=== PATIENT | male | born 1965 | race Caucasian/White ===

== ENCOUNTER 2017-11-30 22:12 | Emergency (ER) | payer MEDICAID, OTHER ==
[~2017-11-30] VITALS: Ht 180.3 cm; Wt 102.1 kg
[2017-11-30 22:22] VITALS: BP 100/75
--- NOTE | 2017-11-30 22:29 | NUR ---
PT AMBULATED TO ROOM 5 WITH VSS.
--- NOTE | 2017-11-30 22:30 | NUR ---
PT PRESENTED ER WITH C/O PAIN TO THE CHEST X 3 HRS AGO. PT STATED HE FEELS TIGHTNESS, AND SHARP PAIN TO THE CHEST AND SOB. 02 SATURATION IS 98% ON RA. PT STATED HE IS GOING THROUGH SOME STRESSFULL TIMES. EKG IS SINUS BRADYCARDIA. KNA AND NO PREVIOUS MEDICAL HX; SKIN IS PINK/WARM/DRY; AAOX4 WITH EVEN AND STEADY GAIT; PATIENT STATES PAIN OF 6/10 AT THIS TIME; VSS; PATIENT POSITIONED FOR COMFORT; HOB ELEVATED; BEDRAILS UP X2; BED DOWN. ER MD MADE AWARE OF PT STATUS.
[2017-11-30] MEDS ORDERED: NITROGLYCERIN 0.4 MG TAB SL ONE (23:10)
[2017-11-30] MEDS ORDERED: ASPIRIN 325 MG TAB PO ONE (23:10)
--- NOTE | 2017-12-01 00:05 | NUR ---
PT RESTING IN BED. VITALS STABLE.
[2017-12-01 00:10] LABS: BASOPHILS % (AUTO) 0.5 % (0.0-2.0); EOSINOPHILS # (AUTO) 0.1 K/uL (0-0.4); HEMATOCRIT 43.2 % (36-52); HEMOGLOBIN 14.1 g/dL (12.0-18.0); LYMPHOCYTES # (AUTO) 2.1 K/uL (2.0-11.5); MEAN CORPUSCULAR HEMOGLOBIN 31 pg (27-31); MEAN CORPUSCULAR HGB CONC 33 g/dL (33-37); MEAN CORPUSCULAR VOLUME 93.7 fL (80-94); MONOCYTES # (AUTO) 0.5 K/uL (0.8-1.0); MONOCYTES % (AUTO) 9.6 % (1.7-9.3); NEUTROPHILS # (AUTO) 2.7 K/uL (1.8-7.7); NEUTROPHILS % (AUTO) 49.9 % (42.2-75.2); PLATELET COUNT (AUTO) 211 K/uL (140-450); WHITE BLOOD COUNT (AUTO) 5.4 K/uL (4.8-10.8)
[2017-12-01 00:23] LABS: ANION GAP 5.8 (8-16); CARBON DIOXIDE 32.2 mmol/L (21-32); CREATININE 0.9 mg/dL (0.7-1.3)
[2017-12-01 00:28] LABS: ALBUMIN 3.7 g/dL (3.4-5.0); TOTAL BILIRUBIN 0.2 mg/dL (0.0-1.0)
--- NOTE | 2017-12-01 00:53 | NUR ---
PT SLEEPING IN BED, VITALS STABLE.
[2017-12-01 01:47] VITALS: BP 104/74
--- NOTE | 2017-12-01 01:47 | NUR ---
Patient discharged with v/s stable. Written and verbal after care instructions given and explained. Patient alert, oriented and verbalized understanding of instructions. Ambulatory with steady gait. All questions addressed prior to discharge. ID band removed. Patient advised to follow up with PMD. Rx of ATIVAN was given. Patient educated on indication of medication including possible reaction and side effects. Opportunity to ask questions provided and answered.
== END 2017-12-01 01:47 | disposition home or self-care (01) ==
LOC: MED 22:12
DX: F41.9 Anxiety disorder, unspecified (principal)
CPT/HCPCS: 36415; 71045; 80053; 84484; 85025; 93005; 99285; Q0092

== ENCOUNTER 2020-07-19 05:53 | Day surgery (SDC) | payer OTHER, SELFPAY ==
[~2020-07-19] VITALS: Ht 180.3 cm; Wt 102.1 kg
[2020-07-19] MEDS ORDERED: fentaNYL citrate 0.05 MG/ML VIAL ONE (07:31)
[2020-07-19] MEDS ORDERED: MIDAZOLAM 5 MG/5 ML VIAL ONE (07:33)
[2020-07-19] MEDS ORDERED: LIDOCAINE VISCOUS 2% 20 ML UDC ONE (07:53)
[2020-07-19] MEDS ORDERED: MIDAZOLAM 2 MG/2 ML VIAL IVP ONE (10:00)
== END 2020-07-19 09:15 | disposition home or self-care (01) ==
LOC: MDS 05:53 → MMU 06:07 → MDS 09:15
PROVIDERS: ATTEND Internal Medicine Gastroenterology
DX: K21.00 Gastro-esophageal reflux disease with esophagitis, without bleeding (principal); K29.70 Gastritis, unspecified, without bleeding; R06.02 Shortness of breath; R93.5 Abnormal findings on diagnostic imaging of other abdominal regions, including retroperitoneum; Z79.899 Other long term (current) drug therapy; Z90.49 Acquired absence of other specified parts of digestive tract; Z20.828 Contact with and (suspected) exposure to other viral communicable diseases
CPT/HCPCS: 36415; 43239; 86677; J2250; U0003; J3010

== ENCOUNTER 2020-11-06 11:38 | Emergency (ER) | payer OTHER, SELFPAY ==
[~2020-11-06] VITALS: Ht 180.3 cm; Wt 105.3 kg
[2020-11-06 11:44] VITALS: BP 128/78
--- NOTE | 2020-11-06 12:17 | NUR ---
JERMAINE WILSON EVALUATING PT IN TRIAGE
[2020-11-06] MEDS ORDERED: KETOROLAC 30 MG/ML VIAL IM ONE (12:20)
--- NOTE | 2020-11-06 12:40 | NUR ---
PT BACK FROM RAD AND TAKEN TO BED 9
--- NOTE | 2020-11-06 12:46 | NUR ---
54/M presents to ED with c/o left hand pain. Patient states he "slipped and fell" this morning at home, stating he landed on his left hand to "catch himself." Patient states he now has 7/10 constant left hand pain radiating up to his left shoulder. Patient denies taking anything for pain prior to arrival to ED. Pulses and sensation equal bilaterally, ROM limited in left arm due to pain, no redness or swelling noted to site.
[2020-11-06] MEDS ORDERED: NAPR-54 PO (13:12)
[2020-11-06] MEDS ORDERED: LIDO1ADH47 TP (13:12)
[2020-11-06] MEDS ORDERED: IBUPROFEN 800 MG TAB ONE (13:34)
[2020-11-06] MEDS ORDERED: IBUPROFEN 800 MG TAB PO ONE (13:35)
[2020-11-06 13:38] VITALS: BP 128/78
--- NOTE | 2020-11-06 13:39 | NUR ---
Patient discharged with v/s stable. Written and verbal after care instructions given and explained. Patient alert, oriented and verbalized understanding of instructions. Ambulatory with steady gait. All questions addressed prior to discharge. ID band removed. Patient advised to follow up with PMD. Rx of Lidocaine patch and Naprosyn given. Patient educated on indication of medication including possible reaction and side effects. Opportunity to ask questions provided and answered.
[2020-11-06] MEDS ORDERED: NAPROXEN 500 MG TAB PO SCH (21:00)
== END 2020-11-06 13:37 | disposition home or self-care (01) ==
LOC: MED 11:38
DX: S40.012A Contusion of left shoulder, initial encounter (principal); S60.012A Contusion of left thumb without damage to nail, initial encounter; Z79.899 Other long term (current) drug therapy; Z90.49 Acquired absence of other specified parts of digestive tract; Z98.890 Other specified postprocedural states; W06.XXXA Fall from bed, initial encounter; Y93.89 Activity, other specified; Y92.89 Other specified places as the place of occurrence of the external cause; Y99.8 Other external cause status
CPT/HCPCS: 73030; 73130; 96372; 99284; J1885

== ENCOUNTER 2021-04-25 20:16 | Emergency (ER) | payer OTHER ==
[~2021-04-25] VITALS: Ht 180.3 cm; Wt 116.6 kg
[~2021-04-25 20:16] MED LIST: LIDO1ADH47 TP; NAPR-54 PO
[2021-04-25 20:35] VITALS: BP 82/58
[2021-04-25] MEDS ORDERED: KETOROLAC 30 MG/ML VIAL IM ONE (21:10)
--- NOTE | 2021-04-25 22:02 | NUR ---
55 YO M BIB SELF WITH C/C OF 7/10 BURNING LUQ PAIN/RIB PAIN X1 MONTH. PT STATES IT WORSENS AT NIGHT AND INCREASES IN PAIN WITH MOVEMENT. PT DENIES INJURY. PRIMARY INSTRUCTED TO COME TO ER IF PAIN INCREASES. DENIES HX, RX AND ALLERGIES
[2021-04-25] MEDS ORDERED: NAPR-54 PO (22:28)
[2021-04-25 22:35] VITALS: BP 82/58
--- NOTE | 2021-04-25 22:35 | NUR ---
Patient discharged with v/s stable. Written and verbal after care instructions given and explained. Patient alert, oriented and verbalized understanding of instructions. Ambulatory with steady gait. All questions addressed prior to discharge. ID band removed. Patient advised to follow up with PMD. Rx of NAPROXEN given. Patient educated on indication of medication including possible reaction and side effects. Opportunity to ask questions provided and answered. VSS, A/OX4, UNLABORED BREATHING, STEADY GAIT, AND CALM DEMEANOR.
== END 2021-04-25 22:35 | disposition home or self-care (01) ==
LOC: MED 20:16
DX: S29.011A Strain of muscle and tendon of front wall of thorax, initial encounter (principal); X58.XXXA Exposure to other specified factors, initial encounter; Y93.89 Activity, other specified; Y92.89 Other specified places as the place of occurrence of the external cause; Y99.8 Other external cause status
CPT/HCPCS: 71045; 96372; 99283; J1885